=== PATIENT | female | born 1995 | race Caucasian/White ===

== ENCOUNTER 2016-09-26 17:02 | Emergency (ER) | payer BC ==
[2016-09-26] MEDS ORDERED: ONDANSETRON 4 MG/2 ML VIAL ONE (17:14)
[2016-09-26] MEDS ORDERED: NS 1,000 ML IV ONE ×2 (17:26→17:40)
[2016-09-26] MEDS ORDERED: ONDANSETRON 4 MG/2 ML VIAL IVP ONE (17:26)
[2016-09-26 17:34] LABS: % IMMATURE GRANULYOCYTES 0.7 % (0.0-1.1); ABSOLUTE IMMATURE GRANULOCYTES 0.11 10^3/uL (0.00-0.10); ADD DIFF? NO; ADD MORPH? NO; ADD SCAN? NO; ATYPICAL LYMPHOCYTE FLAG 0 (0-99); FRAGMENT RBC FLAG 0 (0-99); HEMATOCRIT 40.8 % (38.0-47.0); HEMOGLOBIN 13.6 g/dL (12.6-16.3); LEFT SHIFT FLG 0 (0-99); LIPEMIA HEMOLYSIS FLAG 80 (0-99); MEAN CELL HEMOGLOBIN 31.3 pg (27.9-34.1); MEAN CELL HEMOGLOBIN CONCENTR. 33.3 g/dL (32.4-36.7); MEAN CELL VOLUME 93.8 fL (81.5-99.8); MEAN PLATELET VOLUME 10.1 fL (8.7-11.7); PLATELET CLUMPS FLAG 0 (0-99); PLATELET COUNT 290 10^3/uL (150-400); RED BLOOD CELL COUNT 4.35 10^6/uL (4.18-5.33); RED CELL DISTRIBUTION WIDTH 12.9 % (11.5-15.2)
--- NOTE | 2016-09-26 17:40 | EDPHY ---
H & P Smoking Status: Never smoked Time Seen by Provider: 09/26/16 17:32 HPI/ROS: CHIEF COMPLAINT: Vomiting HISTORY OF PRESENT ILLNESS: 20-year-old female presents to the emergency department with multiple episodes of vomiting since earlier this morning. The patient states that she drank a large amount of alcohol at a alliance party last night and began vomiting this morning. No diarrhea. No abdominal pain. No chest pain or difficulty breathing. No back pain. No known ill contacts. No recent travel. Patient also reports history of frequent urinary tract infections in the last month and a half. She recently finished antibiotics 1 week ago. She states that she has urinated today and has not noticed any dysuria, urgency or frequency with urination. No abdominal surgeries. REVIEW OF SYSTEMS: Constitutional: No fever, no chills. Eyes: No double or blurry vision. ENT: No sore throat. Respiratory: No cough, no shortness of breath. Cardiac: No chest pain. Gastrointestinal: Vomiting as above. No abdominal pain or diarrhea Genitourinary: No dysuria. Musculoskeletal: No neck or back pain. Skin: No rashes. Neurological: No headache. (Babita Saldivar) Past Medical/Surgical History: Negative (Babita Saldivar) Social History: Single (Babita Saldivar) Physical Exam: General Appearance: Alert, no distress. Nontoxic appearing. Afebrile. Boyfriend at bedside. Eyes: Pupils equal and round. Extraocular motions are all intact. ENT: Mouth: Mucous membranes dry. Respiratory: No wheezing, rhonchi, or rales, lungs are clear to auscultation. Cardiovascular: Regular rate and rhythm. Gastrointestinal: Abdomen is soft and nontender, no masses, no rebound or guarding, bowel sounds normal. Neurological: Alert and oriented x 3, cranial nerves II through XII grossly intact Skin: Warm and dry, no rashes. Musculoskeletal: Nontender to palpate along the cervical, thoracic or lumbar spine. Neck is supple. Extremities: Full range of motion and no peripheral edema. Psychiatric: Patient is oriented X 3, there is no agitation. (Babita Saldivar) Constitutional: Initial Vital Signs Temperature (C) 36.6 C 09/26/16 17:03 Heart Rate 70 09/26/16 17:03 Respiratory Rate 18 09/26/16 17:03 Blood Pressure 113/74 09/26/16 17:03 O2 Sat (%) 98 09/26/16 17:03 O2 Delivery Mode Room Air Allergies/Adverse Reactions: No Known Allergies Allergy (Unverified 09/26/16 17:05) Home Medications: Medication Instructions Recorded NK [No Known Home Meds] 09/26/16 Medical Decision Making ED Course/Re-evaluation: 20-year-old female presents to the emergency department with multiple episodes of nausea vomiting. Clinically she appears very dehydrated. She had an IV established and was given IV normal saline as well as IV Zofran. Patient received IV normal saline was feeling much better. She is tolerating p. o. fluids and is comfortable being discharged home. I do not think this patient has acute abdomen. I do not think imaging studies are indicated. (Babita Saldivar) The patient was evaluated and managed by the physician sociology research assistant. I have reviewed this chart and I agree with the findings and plan of care as documented , as indicated by my signature. I am the secondary supervising physician. ( Donna Garvin) Differential Diagnosis: Including but not limited to gastritis, dehydration, bowel obstruction, acute appendicitis, urinary tract infection, pyelonephritis (Babita Saldivar) - Data Points Laboratory Results: Laboratory Results 09/26/16 17:20 09/26/16 17:20 Microbiology Results: MICROBIOLOGY 09/26/16 16:00 Urine,Clean Catch Urine Culture - Preliminary Jesica Albicans Medications Given: Discontinued Medications Sodium Chloride (Ns) 1,000 mls @ 0 mls/hr IV ONCE ONE PRN Reason: Wide Open Stop: 09/26/16 17:27 Last Admin: 09/26/16 17:26 Dose: 1,000 mls Sodium Chloride (Ns) 1,000 mls @ 0 mls/hr IV ONCE ONE PRN Reason: Wide Open Stop: 09/26/16 17:41 Last Admin: 09/26/16 17:45 Dose: 1,000 mls Ondansetron HCl (Zofran) 4 mg IVP EDNOW ONE Stop: 09/26/16 17:27 Last Admin: 09/26/16 17:26 Dose: 4 mg Departure - Departure Disposition: Home, Routine, Self-Care Clinical Impression: Vomiting, Dehydration Condition: Good Instructions: Ondansetron (By mouth), Dehydration (ED), Acute Nausea and Vomiting (ED) Additional Instructions: Clear liquids and slowly advance diet as tolerated. Call [phone] for the results of your urine culture in 48 hours. Abdominal Pain: Return to the Emergency Department immediately for increasing pain, fever, vomiting, or if not completely better in 8-12 hours. Referrals: Germaine Branch PA [Primary Care Provider] - As per Instructions
[2016-09-26 17:48] LABS: ANION GAP 18 mEq/L (8-16); CARBON DIOXIDE 18 mEq/l (22-31); CHLORIDE 103 mEq/L (97-110); CREATININE 0.7 mg/dL (0.6-1.0); GLOMERULAR FILTRATION RATE > 60; GLUCOSE 87 mg/dL (70-100); POTASSIUM 3.8 mEq/L (3.5-5.2); SODIUM 139 mEq/L (134-144)
[2016-09-26 17:48] LABS: COLOR YELLOW; LEUKOCYTE ESTERASE,URINE 1+ (NEGATIVE); NITRITE,URINE NEGATIVE (NEGATIVE)
[2016-09-26 17:57] LABS: BACTERIA 3+ /hpf (NONE SEEN); MUCUS 1+ /lpf (NONE-1+)
[2016-09-26] MEDS ORDERED: ONDANSETRON 4MG PREPACK#2 BTL TAKEHOME ONE (19:28)
[2016-09-26 19:37] VITALS: BP 102/59; PULSE 84; RESP 18; TEMP 97.9; O2SAT 96
== END 2016-09-26 19:37 | disposition home or self-care (01) ==
DX: R11.10 Vomiting, unspecified (principal); E86.0 Dehydration
CPT/HCPCS: 96374; J2405